=== PATIENT | female | born 1970 | race Caucasian/White ===

== ENCOUNTER → 2023-01-31 16:37 | Outpatient (CLI) | payer OTHER, SELFPAY ==
[2023-01-31 18:20] LABS: Add Manual Diff / Slide Review NO; Basophils Absolute Auto 100 /uL (0-100); Basophils Percent Auto 0.9 % (0-2); Eosinophils Absolute Auto 100 /uL (0-450); Eosinophils Percent Auto 2.4 % (2-4); Hematocrit 39.7 % (36-46); Hemoglobin 13.4 g/dL (12.0-16.0); Lymphocytes Absolute Auto 1700 /uL (1100-4500); Lymphocytes Percent Auto 27.5 % (25-40); Mean Corpuscular HGB Conc 33.7 % (30-36); Mean Corpuscular Hemoglobin 29.7 PG (26-34); Mean Corpuscular Volume 88.1 fL (80-100); Monocytes Absolute Auto 500 /uL (0-900); Monocytes Percent Auto 7.4 % (3-14); Neutrophils Absolute Auto 3900 /uL (1500-7000); Neutrophils Percent Auto 61.8 % (50-75); Platelet Count 277 X10^3/uL (150-400); Red Blood Cell Count 4.51 X10^6/uL (4.0-5.2); Red Cell Distribution Width 13.8 % (11.6-14.8); White Blood Cell Count 6.3 X10^3/uL (4.5-11.0)
[2023-01-31 18:22] LABS: C-Reactive Protein Quant < 0.5 mg/dL (<1.0)
[2023-01-31 18:37] LABS: Prolactin 13.3 ng/mL (3.0-18.6)
[2023-01-31 18:41] LABS: Erythrocyte Sedimentation Rate 5 MM/HR (0-20)
== END ==
PROVIDERS: PCP Registered Nurse; Referring Provider Registered Nurse; Visit Provider Registered Nurse
DX: N64.52 Nipple discharge (principal)
CPT/HCPCS: 36415; 84146; 85025; 85651; 86140

== ENCOUNTER → 2023-02-18 09:44 | Outpatient (CLI) | payer OTHER, SELFPAY ==
--- NOTE | 2023-02-18 | DI.MG.S_ITS ---
BILATERAL DIGITAL DIAGNOSTIC MAMMOGRAM 3D/2D: 02/18/2023 CLINICAL: Left breast discharge. No prior exams were available for comparison. There are scattered areas of fibroglandular density in both breasts (category b / 25%-50% glandular tissue). No mammographic abnormality in the subareolar area is identified. No significant masses, calcifications, or other findings are seen in either breast. IMPRESSION: INCOMPLETE: NEEDS ADDITIONAL IMAGING EVALUATION No mammographic evidence of malignancy. Recommend further evaluaton with targeted breast ultrasound, which will immediately follow this exam. Based on the Tyrer Cuzick model (a risk assessment model) the patient's lifetime risk is 13.1% and her 10 year risk is 3.1%. According to the ACR, ACS, and NCCN guidelines, an annual breast MRI exam along with mammogram is recommended if the patient's lifetime risk is 20% or greater. This exam was interpreted at Station ID: [id number]. NOTE: For mammograms, a report in lay terms will be sent to the patient. Approximately 15% of breast malignancies will not be visualized mammographically. In the management of a palpable breast mass, a negative mammogram must not discourage biopsy of a clinically suspicious lesion. Electronically Signed By: Taylor Xiong M.D. esb/:02/18/2023 23:49:39 ACR BI-RADS Category 0: Incomplete 3340F
--- NOTE | 2023-02-18 | DI.US.S_ITS ---
LIMITED ULTRASOUND OF LEFT BREAST: 02/18/2023 CLINICAL: Nipple discharge, left breast, not bloody. Comparison is made to exam dated: 02/18/2023 mammogram - [facility]. Color flow and real-time ultrasound of the left breast retroareolar were performed. There are dilated ducts seen in the retroareolar region of the left breast. No abnormal lymph nodes are seen in the left axilla IMPRESSION: PROBABLY BENIGN Left breast dilated ducts in the retroareolar region. Finding is probably benign. Recommend follow-up ultrasound in 6 months to demonstrate stability. Clinical follow-up is also recommended, and further management of nipple discharge should be based on the results of clinical evaluation. If nipple discharge persist and/or increases or becomes bloody, further clinical evaluation should be considered. Findings and recommendations were conveyed to the patient during today's evaluation. Patient was given instructions to return sooner than 6 months if development of any clinically suspicious findings in the interim. This exam was interpreted at Station ID: [id number]. Electronically Signed By: Taylor dorsey/:02/19/2023 01:29:04 letter sent: Followup Recommended Ultrasound BI-RADS: 3 Probably benign
== END ==
PROVIDERS: PCP Registered Nurse; Referring Provider Registered Nurse; Visit Provider Registered Nurse
DX: N64.52 Nipple discharge (principal); N64.89 Other specified disorders of breast
CPT/HCPCS: 76642; 77066; G0279

== ENCOUNTER → 2023-11-27 07:56 | Outpatient (CLI) | payer OTHER, SELFPAY ==
--- NOTE | 2023-11-27 07:57 | DI.US.S_ITS ---
LIMITED ULTRASOUND OF LEFT BREAST AND AXILLA: 11/27/2023 CLINICAL: 6mo f/u lt dililated ducts. Comparison is made to exams dated: 02/18/2023 ultrasound and 02/18/2023 mammogram [facility]. Color flow and real-time ultrasound of the left breast 9 o'clock, and axilla regions were performed. Mcmillan scale images of the real-time examination were reviewed. There is a new 1.2 cm x 0.7 cm x 0.5 cm oval intraductal mass with an indistinct margin in the left breast at 9 o'clock in the retroareolar region 1 cm from the nipple. This oval intraductal mass is hypoechoic. Color flow imaging demonstrates that there is increased vascularity. IMPRESSION: SUSPICIOUS OF MALIGNANCY The new 1.2 cm x 0.7 cm x 0.5 cm oval intraductal mass in the left breast is suspicious of malignancy. An ultrasound guided biopsy is recommended. The findings and recommendations were discussed with the patient via telephone at the time of the exam. This exam was interpreted at Station ID: [id number]. Electronically Signed By: Rebel blas/fidel:11/27/2023 16:29:10 letter sent: Biopsy Required Ultrasound BI-RADS: 4 Suspicious for malignancy
== END ==
PROVIDERS: PCP Registered Nurse; Referring Provider Registered Nurse; Visit Provider Registered Nurse
DX: N64.52 Nipple discharge (principal); N63.25 Unspecified lump in the left breast, overlapping quadrants
CPT/HCPCS: 76642

== ENCOUNTER → 2023-12-06 14:19 | Outpatient (CLI) | payer OTHER, SELFPAY ==
--- NOTE | 2023-12-06 14:20 | DI.US.S_ITS ---
ULTRASOUND GUIDED BIOPSY LEFT BREAST WITH MARKING DEVICE INSERTED AND POST DIGITAL MAMMOGRAPHIC IMAGIN12/06/2023 CLINICAL: Left breast mass. PATIENT CONSENT: Risks (minor bleeding, infection, vasovagal reaction and repeat procedure), benefits and alternatives were explained to the patient and written informed consent was obtained. Correlation is made to exams dated: 11/27/2023 ultrasound, 02/18/2023 ultrasound, 02/18/2023 mammogram - [facility], 05/22/2022 mammogram, and 03/29/2021 mammogram - outside [facility]. An ultrasound guided biopsy using real-time ultrasound was performed for the 1.2 cm x 0.7 cm x 0.5 cm irregular shaped mass located in the left breast at 9 o'clock in the retroareolar region 1 cm from the nipple. This was described on the previous ultrasound report. The skin was prepped in the usual manner. Local anesthetic was administered to the access site. A skin mandy was made in the breast. The abnormality was approached from the lateral aspect. A 14 gauge biopsy needle was placed adjacent to the abnormality under ultrasound guidance. Once the needle was documented to be in the correct location, three cores were obtained using [employer] Elevation. A vision clip was inserted into the biopsy cavity. A skin adhesive and a sterile dressing were applied to the access site. Post procedure digital mammographic imaging demonstrates the location device at the targeted area. The specimens were sent to the laboratory for pathological analysis. IMPRESSION: ULTRASOUND GUIDED BIOPSY BENIGN Ultrasound guided biopsy of the 1.2 cm x 0.7 cm x 0.5 cm mass in the left breast at 9 o'clock in the retroareolar region 1 cm from the nipple was successful. Procedure was preformed by Dr. Marshal Farrell. Pathology revealed benign breast tissue with fragments consistent with cyst wall. Microcalcifications associated with non-neoplastic breast tissue. Pathology is benign and discordant. Recommend repeat ultrasound guided core biopsy. This exam was interpreted at Station ID: [id number]. Marshal Xiong M.D., Ph.D. aruna prado/:12/12/2023 18:24:55
--- NOTE | 2023-12-06 14:20 | DI.MG.S_ITS ---
UNILATERAL LEFT DIGITAL DIAGNOSTIC MAMMOGRAM 3D/2D - LEFT BREAST POST-PROCEDURE IMAGING FOR MARKER PLACEMENT: 12/06/2023 CLINICAL: Post left breast ultrasound biopsy, clip placement imaging. Comparison is made to exams dated: 02/18/2023 mammogram - [facility], 05/22/2022 mammogram, 03/29/2021 mammogram - outside location, 02/18/2023 ultrasound, and 11/27/2023 ultrasound - [facility]. There are scattered areas of fibroglandular density in the left breast (category b / 25%-50% glandular tissue). There is a marker clip in the appropriate position in the left breast at 9 o'clock anterior depth at the biopsy site. IMPRESSION: POST PROCEDURE MAMMOGRAM FOR MARKER PLACEMENT There was a successful marker clip placement in the left breast anterior depth. This exam was interpreted at Station ID: [id number]. Electronically Signed By: Franko Crow M.D. slc/:12/06/2023 16:19:59 ACR BI-RADS Category Post-procedure mammogram for marker placement
--- NOTE | 2023-12-06 15:44 | PATH_ITS ---
[facility] Accession Number: [id number] No. of containers..01 Tissue . 01 Material submitted: . breast - LT BREAST . 01 Diagnosis: LEFT BREAST, CORE NEEDLE BIOPSIES: Benign breast tissue with fragments consistent with cyst wall. Microcalcifications associated with nonneoplastic breast tissue. Please see comment. No evidence of malignancy, in situ carcinoma, or atypical hyperplasia. [facility] 12/09/2023 1555 Local . 01 Comment: The radiologic impression of an intraductal mass is noted. Clinical and radiologic correlation is recommended. . 01 Electronically signed: . Kylie Bedolla MD, Pathologist NPI- [id number] . 01 Gross description: . Received one formalin-filled container, labeled with the patient's name and designated LT breast. The specimen is received with a plastic filter in the container and consists of three yellow-jaramillo to jaramillo-mack, rough, cylindrical-shaped portions of tissue which range in size from 0.8 x 0.2 x 0.2 cm to 1.5 x 0.2 x 0.2 cm. The specimen is entirely submitted in one cassette. Possible collection date and time per requisition is 12/06/2023 at 1550. Total fixation time is approximately 35 hours. ([id number]) /[facility] 12/07/2023 1148 Local . 01 Pathologist provided ICD-10: R92.8, N63.0 . 01 CPT . 253366 Specimen Comment: A courtesy copy of this report has been sent to [facility] Pathology Performed at: [address] [address], [place], [place] [id number] MD Tato Isaac MD Phone: [phone]
== END ==
PROVIDERS: PCP Registered Nurse; Referring Provider Registered Nurse; Visit Provider Registered Nurse
DX: R92.8 Other abnormal and inconclusive findings on diagnostic imaging of breast (principal); N63.25 Unspecified lump in the left breast, overlapping quadrants; R92.322 Mammographic fibroglandular density, left breast
CPT/HCPCS: 19083; 77065

== ENCOUNTER → 2023-12-20 13:59 | Outpatient (CLI) | payer OTHER, SELFPAY ==
--- NOTE | 2023-12-20 14:01 | DI.US.S_ITS ---
PROCEDURE: US BREAST LT LIMITED COMPARISON: [facility], BREAST LT LIMITED, 11/27/2023, 8:49. INDICATIONS: MASS OF UPPER INNER QUAD OF LEFT BREAST FINDINGS/IMPRESSION: There is no convincing evidence to believe that this current lesion is the same lesion that was previously biopsied and therefore a biopsy was not performed. Instead a three-month follow-up was suggested. We spoke with Dr. Reynolds, the beater out leveling machine, and he agreed with the plan. Dictated by: Marshal Farrell M.D. on 12/20/2023 at 17:34 Approved by: Marshal Farrell M.D. on 12/20/2023 at 17:37
== END ==
LOC: US 14:00
PROVIDERS: PCP Registered Nurse; Referring Provider Registered Nurse; Visit Provider Registered Nurse
DX: R92.8 Other abnormal and inconclusive findings on diagnostic imaging of breast (principal); N63.22 Unspecified lump in the left breast, upper inner quadrant
CPT/HCPCS: 76642

== ENCOUNTER → 2024-01-08 08:55 | Outpatient (CLI) | payer OTHER, SELFPAY ==
--- NOTE | 2024-01-08 08:56 | DI.MRI.S_ITS ---
BREAST MRI OF BOTH BREASTS: 01/08/2024 CLINICAL: Left breast Mass. PROCEDURE: MR BREAST BI WO/W CON INDICATIONS: MASS OF UPPER INNER QUADRANT OF LEFT BREAST TECHNIQUE: The patient was placed prone in a dedicated breast imaging coil. Precontrast axial STIR and 3D FLASH without fat saturation sequences were obtained. Both before and after bolus injection of contrast, sequential 1-minute axial 3D FLASH with fat saturation sequences for 3 time points, with subtraction images and maximum intensity projections (MIP's) generated. Delayed sagittal FLASH images with fat saturation were also obtained. CONTRAST: 20 cc Prohance. Computer-aided detection, including computer algorithm analysis of MRI image data for lesion detection and characterization, pharmacokinetic analysis, with further physician review for interpretation, was performed. COMPARISON: [facility], BREAST LT LIMITED, 12/20/2023, 14:25. [facility], MM DIAGNOSTIC MAMMO UNILAT LT2D, 12/06/2023, 15:36. [facility], BX BREAST PERC W VAC DEVICE, 12/06/2023, 14:27. [facility], BREAST LT LIMITED, 11/27/2023, 8:49. [facility], BREAST LT LIMITED, 02/18/2023, 10:36. [facility], , MM DIAGNOSTIC MAMMO BI, 02/18/2023, 10:02. Outside Facility, [facility], MM SCREENING MAMMO BI, 05/22/2022, 13:44. Outside Facility, [facility], MM SCREENING MAMMO BI, 03/29/2021, 15:53. FINDINGS: Image quality: Excellent. There is mild background parenchymal enhancement. Right breast: No mass or suspicious enhancement. Left breast: Left breast central to the nipple susceptibility artifact from prior biopsy clip. There is curvilinear T2 signal which projects towards the nipple most likely debris or hemorrhage within the ducts. There is no significant intrinsic T1 hyperintense signal. There is mass-like enhancement just superior to the biopsy clip in the central left breast middle/posterior depth measuring 0.9 x 0.9 x 0.8 cm, ( and ). Kinetic analysis demonstrates slow initial phase and persistent delayed phase. There is enhancement along the ducts which project towards the nipple. Miscellaneous: No enlarged lymph nodes. IMPRESSION: SUSPICIOUS OF MALIGNANCY 1. Right breast: No mass or suspicious enhancement. 2. Left breast: Central to the nipple middle/posterior depth irregular enhancing mass measuring 0.9 cm just superior to the biopsy clip. Suspicious for malignancy. Recommend repeat US guided biopsy. If the lesion cannot be confidently seen, recommend MRI guided biopsy. 3. Lymph nodes: No enlarged lymph nodes. BIRADS 4b Recommend ultrasound guided biopsy of the left breast. COMMENT: The imaging literature indicates that a negative contrast breast MRI examination has a high sensitivity and a moderate specificity for detecting and excluding invasive carcinomas to a detection threshold of 3-5 mm; nonetheless, appropriate clinical and mammographic follow-up are recommended. MRI is not sensitive for detecting DCIS (ductal carcinoma in situ) and may not detect large invasive neoplasms that show only minimal enhancement such as mucinous carcinoma. If there are suspicious calcifications or clinically worrisome palpable masses, then biopsy should still be considered. Invasive neoplasms can be hidden by co-existent and benign enhancement caused by mastitis, hormone therapy effects, radiation therapy, , and recent biopsy or surgery. False positive examinations can occur in a number of circumstances, including breasts that have recently been subject to invasive procedures and those that contain atypical ductal hyperplasia, hormonally stimulated glandular tissue, fat necrosis, or radial scars. Dictated by: Franko Crow M.D. on 01/10/2024 at 9:13 This exam was interpreted at Station ID: [id number]. Electronically Signed By: Franko Crow M.D. slc/:01/10/2024 11:53:05 letter sent: Biopsy Required ACR BI-RADS Category 4b: Suspicious abnormality - intermediate suspicion of malignancy [id number]
== END ==
LOC: MRI 08:55
PROVIDERS: PCP Registered Nurse; Referring Provider Registered Nurse; Visit Provider Registered Nurse
DX: N63.25 Unspecified lump in the left breast, overlapping quadrants (principal); N63.22 Unspecified lump in the left breast, upper inner quadrant; N64.52 Nipple discharge
CPT/HCPCS: 77049; A9579

== ENCOUNTER → 2024-06-27 10:20 | Outpatient (CLI) | payer OTHER, SELFPAY ==
[2024-06-27 12:17] LABS: Add Manual Diff / Slide Review NO; Basophils Absolute Auto 0 /uL (0-100); Basophils Percent Auto 0.7 % (0-2); Eosinophils Absolute Auto 100 /uL (0-450); Eosinophils Percent Auto 1.8 % (2-4); Hematocrit 42.6 % (36-46); Lymphocytes Absolute Auto 1500 /uL (1100-4500); Lymphocytes Percent Auto 33.6 % (25-40); Mean Corpuscular HGB Conc 32.9 % (30-36); Mean Corpuscular Hemoglobin 29.2 PG (26-34); Mean Corpuscular Volume 88.9 fL (80-100); Monocytes Absolute Auto 300 /uL (0-900); Monocytes Percent Auto 7.3 % (3-14); Neutrophils Absolute Auto 2600 /uL (1500-7000); Neutrophils Percent Auto 56.6 % (50-75); Platelet Count 265 X10^3/uL (150-400); Red Cell Distribution Width 13.4 % (11.6-14.8); White Blood Cell Count 4.6 X10^3/uL (4.5-11.0)
[2024-06-27 13:54] LABS: Alanine Aminotransferase 15 IU/L (<35); Albumin 4.4 g/dL (3.5-5.0); Albumin Globulin Ratio 1.8 (1.0-2.8); Alkaline Phosphatase 54 U/L (38-126); Aspartate Aminotransferase 23 IU/L (14-36); BUN Creatinine Ratio 16.7 (6-22); Bilirubin Total 0.5 mg/dL (0.2-1.3); Blood Urea Nitrogen 16 mg/dL (7-17); Calcium 9.6 mg/dL (8.4-10.2); Carbon Dioxide 30 mmol/L (22-32); Chloride 104 mmol/L (98-107); Cholesterol 234 mg/dL (140-199); Estimated Glomerular Filt Rate > 60 mL/min (>60); Globulin 2.5 g/dL (1.7-4.1); Glucose 95 mg/dL (70-100); HDL Cholesterol 77 mg/dL (40-60); HEMOLYSIS < 15 (0-50); LDL Cholesterol Calculated 144 mg/dL (<100); Potassium 4.6 mmol/L (3.4-5.1); Sodium 139 mmol/L (137-145); Total Protein 6.9 g/dL (6.3-8.2); Triglycerides 63 mg/dL (35-150)
== END ==
LOC: LAB 10:22
PROVIDERS: PCP Registered Nurse; Referring Provider Registered Nurse; Visit Provider Registered Nurse
DX: Z13.220 Encounter for screening for lipoid disorders (principal); Z13.228 Encounter for screening for other metabolic disorders; Z13.0 Encounter for screening for diseases of the blood and blood-forming organs and certain disorders involving the immune mechanism
CPT/HCPCS: 36415; 80053; 80061; 85025

== ENCOUNTER → 2024-07-31 11:58 | Outpatient (CLI) | payer OTHER, SELFPAY ==
--- NOTE | 2024-07-31 12:00 | DI.US.S_ITS ---
US breast LT limited: 07/31/2024. BI-RADS: 2 CLINICAL: 54-year old female for left diagnostic breast ultrasound. Tyrer-Cuzick lifetime risk of 7.8%. 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 PRIOR EXAMS: 01/22/2024, 01/08/2024, 12/20/2023, 12/06/2023, 11/27/2023, 02/18/2023. ULTRASOUND TECHNIQUE: TARGETED Left Breast Ultrasound: Real-time ultrasound exam was performed focused to area of clinical and/or imaging concern. Real-time jaramillo scale and color doppler imaging of the area of clinical interest was performed with image documentation. ULTRASOUND FINDINGS Left: Inner at 9:00, 1 cm from nipple: No suspicious sonographic finding with typically benign findings noted. Evaluation and direct comparison to pre-biopsy ultrasound from 01/22/2024, and 12/20/2023, is limited in the setting of post-biopsy changes to the area at 9:00, 1 cm from the nipple. Two adjacent biopsy microclips are seen. The jany clip associated with the patient's biopsy proven intraductal papilloma is located now within a vague hypoechoic area which measures approximately 1 x 0.3 x 0.5 cm, previously measuring 1.0 x 0.6 x 0.7 cm on 01/22/2024. IMPRESSION: Left * No evidence of malignancy with benign findings. RECOMMENDATIONS Left: Inner at 9:00, 1 cm from nipple * Consultation with surgeon (Continue with management per surgical consultation of the intraductal papilloma in the left breast at 9:00, 1 cm from the nipple ([place] clip). This finding is less apparent on the current ultrasound, likely due to post-biopsy changes). Bilateral * Annual screening mammography (The last screening mammogram on record is from 02/18/2023). * The [employer] recommends screening mammograms every year for women at average risk of breast cancer beginning at age 40. COMMENTS: The above findings and recommendations were discussed with the patient at the time of the exam. OVERALL ASSESSMENT CATEGORY BI-RADS-2: Benign. ELECTRONICALLY SIGNED: Faviola Preciado M.D. on 07/31/2024 at 01:51:24 PM PT Interpreting Station ID: [id number]
== END ==
LOC: US 12:00
PROVIDERS: PCP Registered Nurse; Referring Provider Registered Nurse; Visit Provider Registered Nurse
DX: D24.2 Benign neoplasm of left breast (principal)
CPT/HCPCS: 76642

== ENCOUNTER → 2024-09-18 09:01 | Outpatient (CLI) | payer OTHER, SELFPAY ==
--- NOTE | 2024-09-18 09:02 | DI.MG.S_ITS ---
MM screening mammo BI: 09/18/2024. BI-RADS: 2 CLINICAL: 54-year old female for bilateral screening mammogram. Tyrer-Cuzick lifetime risk of 9.4%. No personal or first-degree family history of breast cancer. PRIOR EXAMS Breast Ultrasound(s): 07/31/2024. Nine Other Exams on 01/22/2024, 01/08/2024, 12/20/2023, 12/06/2023, 11/27/2023, 02/18/2023. MAMMOGRAPHY TECHNIQUE: 2D and 3D (tomosynthesis) digital mammographic views obtained, with additional images as needed for full coverage. Current study was also evaluated with a Computer Aided Detection (CAD) system. DENSITY C. The breasts are heterogeneously dense, which may obscure small masses. MAMMOGRAPHY FINDINGS Right: No suspicious mass, asymmetry, microcalcification, or other abnormality seen. Left: Biopsy marker present on the left. There are no suspicious masses, calcifications, or other findings in the breast. IMPRESSION: Right * No evidence of malignancy. Left * No evidence of malignancy with benign findings. RECOMMENDATIONS Bilateral * Annual screening mammography. OVERALL ASSESSMENT CATEGORY BI-RADS-2: Benign. The [employer] recommends annual screening mammography beginning at age 40 for women with average risk of breast cancer. ELECTRONICALLY SIGNED: Taylor Xiong M.D. on 09/21/2024 at 01:37:58 AM PT Interpreting Station ID: [id number]
== END ==
PROVIDERS: PCP Registered Nurse; Referring Provider Registered Nurse; Visit Provider Registered Nurse
DX: Z12.31 Encounter for screening mammogram for malignant neoplasm of breast (principal); R92.333 Mammographic heterogeneous density, bilateral breasts
CPT/HCPCS: 77063; 77067